=== PATIENT | male | born 1990 | race Caucasian/White ===

== ENCOUNTER 2017-01-24 00:21 | Observation (INO) | payer SELFPAY ==
[~2017-01-24] VITALS: Ht 175.3 cm; Wt 95.3 kg
[2017-01-24 01:52] LABS: HEMOGLOBIN 15.4 gm/dl (14.0-17.5); RED BLOOD COUNT 5.3 M/UL (4.20-5.50); WHITE BLOOD COUNT 7.4 K/UL (4.5-11.0)
[2017-01-24 02:11] LABS: BUN/CREATININE RATIO 5 (0-10)
[2017-01-24] MEDS ORDERED: PROTONIX 40 MG40 M1 PO (16:11)
== END 2017-01-24 17:06 | disposition home or self-care (01) ==
LOC: ER1 00:21 → ZEROF 04:30 → M/S 14:00
PROVIDERS: Emergency Medicine; ADMIT Internal Medicine
DX: R00.1 Bradycardia, unspecified (principal); R10.13 Epigastric pain; D69.6 Thrombocytopenia, unspecified; Z82.49 Family history of ischemic heart disease and other diseases of the circulatory system; Z83.49 Family history of other endocrine, nutritional and metabolic diseases; Z90.89 Acquired absence of other organs
CPT/HCPCS: ECHO; 36415; 71010; 80053; 80061; 81001; 82550; 82553; 83036; 83690; 83874; 84443; 84484; 85025; 87086; 93005; 93306; 96361; 96374; 99285; C9113; G0378; J7030; J7050

== ENCOUNTER 2021-03-02 09:11 | Emergency (ER) | payer OTHER ==
[~2021-03-02 09:11] MED LIST: LEVSIN0.125 MG SL; LORTAB ELIXIR 715 ML PO; PENVEE K 500 M500 MG PO; PROTONIX 40 MG40 M1 PO; ZANTAC150 MG PO
[2021-03-02] MEDS ORDERED: CYCLOBENZAPRINE5 MG PO (12:45)
[2021-03-02] MEDS ORDERED: NAPROSYN500 MG PO (12:45)
== END 2021-03-02 13:00 | disposition home or self-care (01) ==
LOC: ER1 09:11
DX: S16.1XXA Strain of muscle, fascia and tendon at neck level, initial encounter (principal); S39.012A Strain of muscle, fascia and tendon of lower back, initial encounter; S29.012A Strain of muscle and tendon of back wall of thorax, initial encounter; S80.11XA Contusion of right lower leg, initial encounter; M51.37 Other intervertebral disc degeneration, lumbosacral region; V49.9XXA Car occupant (driver) (passenger) injured in unspecified traffic accident, initial encounter
CPT/HCPCS: 72040; 72072; 72100; 72125; 73590; 99284

== ENCOUNTER → 2022-02-28 | Outpatient (CLI) | payer OTHER ==
[~2022-02-28] MED LIST changes: +CYCLOBENZAPRINE5 MG PO; +NAPROSYN500 MG PO
== END ==
LOC: HEART 5 02-19 11:00
DX: R07.9 Chest pain, unspecified (principal)
CPT/HCPCS: 93306